=== PATIENT | female | born 1960 | race African-American/Black ===

== ENCOUNTER 2017-07-27 10:08 | Emergency (ER) | payer MEDICAID ==
[~2017-07-27] VITALS: Ht 165.1 cm; Wt 100.0 kg
[2017-07-27] MEDS ORDERED: ATOR20TA65 PO (10:28)
[2017-07-27] MEDS ORDERED: ATEN50TA PO (10:28)
[2017-07-27] MEDS ORDERED: TRAZ-129 PO (10:28)
[2017-07-27] MEDS ORDERED: ASPI-1159 PO (10:28)
[2017-07-27 13:53] VITALS: BP 147/88
== END 2017-07-27 13:56 | disposition home or self-care (01) ==
LOC: ER 10:27
DX: J10.1 Influenza due to other identified influenza virus with other respiratory manifestations (principal); E78.00 Pure hypercholesterolemia, unspecified; I10 Essential (primary) hypertension; Z79.82 Long term (current) use of aspirin; Z90.710 Acquired absence of both cervix and uterus
CPT/HCPCS: 71010; 87804; 99285

== ENCOUNTER 2018-09-19 23:03 | Emergency (ER) | payer MEDICAID ==
[~2018-09-19] VITALS: Ht 170.2 cm; Wt 79.0 kg
[~2018-09-19 23:03] MED LIST: ASPI-1159 PO; ATEN50TA PO; ATOR20TA65 PO; TRAZ-212 PO
[2018-09-19 23:06] VITALS: BP 124/72
== END 2018-09-19 23:29 | disposition left against medical advice (07) ==
LOC: ER 23:03
DX: Z53.21 Procedure and treatment not carried out due to patient leaving prior to being seen by health care provider (principal)

== ENCOUNTER 2019-07-15 11:04 | Emergency (ER) | payer MEDICAID ==
[~2019-07-15] VITALS: Ht 172.7 cm; Wt 89.0 kg
[~2019-07-15 11:04] MED LIST changes: -ASPI-1159 PO; +ASPI-1393 PO; -TRAZ-212 PO; +TRAZ-251 PO
[2019-07-15 14:41] VITALS: BP 150/98
== END 2019-07-15 14:42 | disposition home or self-care (01) ==
LOC: ER 11:04
DX: H66.91 Otitis media, unspecified, right ear (principal); I10 Essential (primary) hypertension; E78.00 Pure hypercholesterolemia, unspecified; Z90.710 Acquired absence of both cervix and uterus
CPT/HCPCS: 99283

== ENCOUNTER 2024-11-13 13:23 | Emergency (ER) | payer MEDICAID, OTHER ==
[~2024-11-13] VITALS: Ht 167.6 cm; Wt 90.8 kg
[~2024-11-13 13:23] MED LIST changes: -ASPI-1393 PO; +ASPI-1497 PO
[2024-11-13 13:27] VITALS: BP 136/83; TEMP 36.7; O2SAT 100
[2024-11-13 13:29] VITALS: PULSE 74; RESP 16; O2SAT 98
[2024-11-13] MEDS: KETOROLAC 30MG/ML VIAL IM STA (14:53)
[2024-11-13 15:36] LABS: BASOPHILS % 0.9 % (0.0-2.0); EOSINOPHILS % 1.6 % (0.0-5.0); HEMATOCRIT. 41.3 % (36.0-48.0); HEMOGLOBIN. 13.9 g/dL (12.0-16.0); LYMPHOCYTES % 46.8 % (20.0-50.0); MEAN CORPUSCULAR HEMOGLOBIN 32.3 pg (28.0-32.0); MEAN CORPUSCULAR HGB CONC 33.7 g/dL (31.0-37.0); MEAN CORPUSCULAR VOLUME 95.9 fL (81.0-99.0); MEAN PLATELET VOLUME 8.5 fl (7.4-10.4); MONOCYTES % 6.6 % (2.0-8.0); NEUTROPHILS % 44.1 % (40.0-76.0); PLATELET 272 x1000/uL (130-400); RED BLOOD CELL COUNT 4.31 mill/uL (4.2-5.4); RED CELL DISTRIBUTION WIDTH 12.5 % (11.6-14.6); WHITE BLOOD COUNT 6.9 x1000/uL (4.5-11.0)
[2024-11-13 15:55] LABS: CARBON DIOXIDE 30 mEq/L (21-32); CHLORIDE 107 mEq/L (98-107); POTASSIUM 3.8 mEq/L (3.5-5.1); SODIUM 143 mEq/L (136-145)
[2024-11-13 15:57] LABS: CALCIUM 9.6 mg/dL (8.7-10.4)
[2024-11-13 15:59] LABS: CREATININE 0.6 mg/dL (0.6-1.0)
[2024-11-13 16:01] LABS: GLUCOSE 111 mg/dL (70-105); UREA NITROGEN BLOOD 11 mg/dL (9-23)
[2024-11-13] MEDS ORDERED: TOPUD MT (16:29)
[2024-11-13] MEDS ORDERED: HYDR25SU7 RC (16:32)
[2024-11-13 17:25] LABS: CLARITY URINE CLEAR (CLEAR); COLOR URINE YELLOW (YELLOW); GLUCOSE URINE NEGATIVE (NEGATIVE); KETONES URINE TRACE (NEGATIVE); LEUKOCYTE ESTERASE URINE NEGATIVE (NEGATIVE); NITRITE URINE NEGATIVE (NEGATIVE); OCCULT BLOOD URINE NEGATIVE (NEGATIVE); PH URINE 5.5 (4.5-8.0); PROTEIN URINE NEGATIVE (NEGATIVE); SPECIFIC GRAVITY URINE 1.019 (1.005-1.030); UROBILINOGEN URINE 0.2 E.U./dL (0.2-1.0)
== END 2024-11-13 17:56 | disposition home or self-care (01) ==
LOC: ER 13:23
DX: K64.9 Unspecified hemorrhoids (principal); E78.00 Pure hypercholesterolemia, unspecified; I10 Essential (primary) hypertension; Z79.82 Long term (current) use of aspirin; Z90.710 Acquired absence of both cervix and uterus
CPT/HCPCS: 99283; 80048; 81003; 85025; 36415; 96372; J1885

== ENCOUNTER 2025-01-19 08:06 | Emergency (ER) | payer MEDICAID, OTHER ==
[~2025-01-19] VITALS: Ht 167.6 cm; Wt 88.0 kg
[~2025-01-19 08:06] MED LIST changes: +HYDR25SU7 RC; +TOPUD MT
[2025-01-19 08:16] VITALS: O2SAT 99
[2025-01-19] MEDS: ACETAMINOPHEN 325MG TABLET PO STA (08:37)
[2025-01-19 09:27] LABS: BASOPHILS % 0.4 % (0.0-2.0); EOSINOPHILS % 0.5 % (0.0-5.0); HEMATOCRIT. 44.5 % (36.0-48.0); HEMOGLOBIN. 15.1 g/dL (12.0-16.0); LYMPHOCYTES % 40.8 % (20.0-50.0); MEAN CORPUSCULAR HEMOGLOBIN 31.8 pg (28.0-32.0); MEAN CORPUSCULAR HGB CONC 33.9 g/dL (31.0-37.0); MEAN CORPUSCULAR VOLUME 93.7 fL (81.0-99.0); MEAN PLATELET VOLUME 7.9 fl (7.4-10.4); MONOCYTES % 9.3 % (2.0-8.0); PLATELET 302 x1000/uL (130-400); RED BLOOD CELL COUNT 4.75 mill/uL (4.2-5.4); RED CELL DISTRIBUTION WIDTH 12.5 % (11.6-14.6); WHITE BLOOD COUNT 6.3 x1000/uL (4.5-11.0)
[2025-01-19 09:35] LABS: CARBON DIOXIDE 29 mEq/L (21-32); CHLORIDE 106 mEq/L (98-107); POTASSIUM 4.3 mEq/L (3.5-5.1); SODIUM 141 mEq/L (136-145)
[2025-01-19 09:36] LABS: CALCIUM 10.1 mg/dL (8.7-10.4)
[2025-01-19 09:40] LABS: CREATININE 0.7 mg/dL (0.6-1.0)
[2025-01-19 09:41] LABS: GLUCOSE 125 mg/dL (70-105); UREA NITROGEN BLOOD 7 mg/dL (9-23)
[2025-01-19 09:48] LABS: CLARITY URINE CLEAR (CLEAR); COLOR URINE DARK YELLOW (YELLOW); GLUCOSE URINE NEGATIVE (NEGATIVE); KETONES URINE TRACE (NEGATIVE); LEUKOCYTE ESTERASE URINE NEGATIVE (NEGATIVE); NITRITE URINE NEGATIVE (NEGATIVE); OCCULT BLOOD URINE TRACE (NEGATIVE); PH URINE 5.5 (4.5-8.0); PROTEIN URINE TRACE (NEGATIVE); SPECIFIC GRAVITY URINE 1.024 (1.005-1.030)
[2025-01-19 10:01] LABS: SQUAMOUS EPITHELIAL CELL URINE FEW /lpf (RARE/1+)
[2025-01-19 10:02] LABS: BACTERIA URINE TRACE; COARSE GRANULAR CASTS URINE 0-5 /lpf; MUCUS URINE 1+ /lpf (< = 2+)
[2025-01-19 10:04] LABS: HYALINE CASTS URINE 0-5 /lpf; RBC URINE NONE SEEN /hpf (0-2); WBC URINE 0-2 /hpf (0-2)
[2025-01-19] MEDS ORDERED: CEPH500T MT (10:13)
[2025-01-19 10:51] VITALS: BP 121/86; PULSE 68; RESP 16; TEMP 37.2; O2SAT 99
== END 2025-01-19 10:56 | disposition home or self-care (01) ==
LOC: ER 08:06
DX: T84.54XA Infection and inflammatory reaction due to internal left knee prosthesis, initial encounter (principal); N39.0 Urinary tract infection, site not specified; M54.50 Low back pain, unspecified; E78.00 Pure hypercholesterolemia, unspecified; I10 Essential (primary) hypertension; M17.12 Unilateral primary osteoarthritis, left knee; Z90.710 Acquired absence of both cervix and uterus; Z79.899 Other long term (current) drug therapy
CPT/HCPCS: 36415; 73562; 80048; 81003; 85025; 99284